=== PATIENT | male | born 2000 | race Caucasian/White ===

== ENCOUNTER 2021-11-09 16:43 | Outpatient (CLI) | payer OTHER ==
[2021-11-09 23:51] LABS: SARS-CoV-2 PCR by NAA Not Detected (NotDetected)
== END 2021-11-09 16:44 | disposition home or self-care (01) ==
LOC: CSHLAB 16:43
PROVIDERS: ATTEND Orthopaedic Surgery Sports Medicine
DX: Z20.822 Contact with and (suspected) exposure to COVID-19 (principal); S83.512D Sprain of anterior cruciate ligament of left knee, subsequent encounter; S83.222D Peripheral tear of medial meniscus, current injury, left knee, subsequent encounter
CPT/HCPCS: U0003; U0005

== ENCOUNTER 2021-11-12 09:06 | Day surgery (SDC) | payer OTHER ==
[2021-11-12] MEDS ORDERED: Lidocaine 1% MPF 2 ML VIAL ONE (09:30)
[2021-11-12] MEDS ORDERED: Midazolam HCl 2 mg/2 ml Vial ONE (09:34)
[2021-11-12] MEDS ORDERED: Ropivacaine 0.5% HCl/PF (150 MG/30 ML VIAL) ONE (09:34)
[2021-11-12] MEDS ORDERED: Lidocaine 2% PF 100 mg/5 ml Syringe ONE (09:34)
[2021-11-12] MEDS ORDERED: Fentanyl 100 MCG/2 ML VIAL ONE ×2 (09:34→10:08)
[2021-11-12] MEDS ORDERED: Lidocaine 2% PF 5 ML VIAL ONE (10:07)
[2021-11-12] MEDS ORDERED: Ketorolac Tromethamine 30 MG/ML VIAL ONE (10:07)
[2021-11-12] MEDS ORDERED: Ondansetron PF 4 MG/2 ML Vial ONE (10:07)
[2021-11-12] MEDS ORDERED: Dexamethasone 20 MG/5 ML VIAL ONE (10:07)
[2021-11-12] MEDS ORDERED: PROPOFOL 20 ML ONE (10:08)
[2021-11-12] MEDS ORDERED: ceFAZolin 2 GM/Dextrose 50 ML IVPB ONE (10:11)
[2021-11-12 10:29] VITALS: BMI 24.6
[2021-11-12] MEDS ORDERED: ePHEDrine Sulfate 50 MG/10 ML VIAL ONE (10:32)
== END 2021-11-12 12:15 | disposition home or self-care (01) ==
LOC: CSHSDC 09:06
PROVIDERS: ATTEND Orthopaedic Surgery Sports Medicine
PROC: 0MQP4ZZ Repair Left Knee Bursa and Ligament, Percutaneous Endoscopic Approach (ICD-10-PCS; principal; 2021-11-12)
PROC: 0SQD4ZZ Repair Left Knee Joint, Percutaneous Endoscopic Approach (ICD-10-PCS; principal; 2021-11-12)
DX: S83.512A Sprain of anterior cruciate ligament of left knee, initial encounter (principal); S83.242A Other tear of medial meniscus, current injury, left knee, initial encounter; S83.282A Other tear of lateral meniscus, current injury, left knee, initial encounter
CPT/HCPCS: C1713; J0690; J1100; J1885; J2001; J2250; J2405; J2704; J2795; J3010